=== PATIENT | male | born 1995 | race Caucasian/White ===

== ENCOUNTER 2016-08-27 12:04 | Emergency (ER) | payer BC | END 2016-08-27 14:52 | disposition home or self-care (01) | LOC: ER 12:04 | DX: R06.00 Dyspnea, unspecified (principal); R07.89 Other chest pain; F17.210 Nicotine dependence, cigarettes, uncomplicated | CPT/HCPCS: 36415; 71010; 80053; 81001; 82553; 83880; 84484; 85025; 85379; 93005 ==